=== PATIENT | female | born 1945 | race Caucasian/White ===

== ENCOUNTER → 2017-10-25 | Outpatient (CLI) | payer MEDICARE, BC | LOC: M RAD 15:01 | DX: H90.A21 Sensorineural hearing loss, unilateral, right ear, with restricted hearing on the contralateral side (principal) | CPT/HCPCS: 70551 ==

== ENCOUNTER → 2019-02-28 | Outpatient (REF) | LOC: M LAB LCGH 10:27 | PROVIDERS: ATTEND Physician Assistant | DX: B35.1 Tinea unguium (principal) ==